=== PATIENT | female | born 1980 | race Two or more races ===

== ENCOUNTER 2016-12-17 22:47 | Emergency (ER) | payer MEDICAID ==
[~2016-12-17] VITALS: Ht 154.9 cm; Wt 54.9 kg
[2016-12-17] MEDS ORDERED: NKM (23:30)
--- NOTE | 2016-12-17 23:33 | Emergency Room Report ---
History of Present Illness General Chief Complaint: Fever Source: Patient Present Illness HPI Is a 36-year-old female with no past medical history. She presents with chief complaint of fever and body pain. Onset today. Also noted a rash on her body. Also lymph node the back of her head. [place] congested. Also with headache. Has not anything for this. No nausea vomiting. No dysuria frequency. Pain is 10 out of 10. Allergies: Coded Allergies: No Known Allergies (Unverified , 12/17/16) Patient History Past Medical History: none, see triage record, old chart reviewed Past Surgical History: none Pertinent Family History: none Last Menstrual Period: Dec Now: No Immunizations: other Reviewed Nursing Documentation: PMH: Agreed, PSxH: Agreed Nursing Documentation-PMH Hx Hypertension: Yes Review of Systems Constitutional: Reports: fever, malaise, weakness Eye: Denies: blurred vision, eye pain ENT: Denies: ear pain, nose congestion, throat swelling Respiratory: Denies: cough, shortness of breath Cardiovascular: Denies: chest pain, palpitations Gastrointestinal: Denies: abdominal pain, diarrhea, nausea, vomiting Musculoskeletal: Denies: back pain, joint pain Skin: Denies: rash Neurological: Denies: headache, numbness Endocrine: Denies: increased thirst, increased urine Hematologic/Lymphatic: Denies: easy bruising All Other Systems: negative except mentioned in HPI Physical Exam Vital Signs Date Time Temp Pulse Resp B/P Pulse Ox O2 Delivery O2 Flow Rate FiO2 12/17/16 23:26 99.3 80 16 157/103 100 Room Air vitals with elevated bp Sp02 EP Interpretation: reviewed, normal General Appearance: well appearing, no apparent distress, alert Head: normocephalic, atraumatic Eyes: bilateral eye EOMI, bilateral eye PERRL ENT: hearing grossly normal, normal pharynx, other - Bilateral TMs with fluid levels. Neck: full range of motion, supple, no meningismus, other - Post auricular lymph nodes. Respiratory: chest non-tender, lungs clear, normal breath sounds Cardiovascular #1: regular rate, rhythm, no murmur Gastrointestinal: normal bowel sounds, non tender, no mass, no organomegaly, no bruit, non-distended Musculoskeletal: back normal, gait/station normal, normal range of motion Psychiatric: mood/affect normal Skin: warm/dry, rash - Scatter viral exanthem Medical Decision Making Diagnostic Impression: Primary Impression: Otitis media of both ears Qualified Codes: H65.03 - Acute serous otitis media, bilateral Additional Impression: Viral illness ER Course Patient with a viral illness complicated by bilateral otitis media. No evidence of meningitis, sepsis, pneumonia, acute abdomen or other serious bacterial infection. She may also have influenza. She looks well otherwise. Last Vital Signs Date Time Temp Pulse Resp B/P Pulse Ox O2 Delivery O2 Flow Rate FiO2 12/17/16 23:26 99.3 80 16 157/103 100 Room Air Status: improved Disposition: HOME, SELF-CARE Condition: Stable Scripts Azithromycin* (ZITHROMAX*) 250 Mg Tablet 250 MG ORAL DAILY, #6 TAB 0 Refills Take two tables once daily for 1 day, then one tablet once daily for 4 days. Prov: ERIKA WEST M.D. 12/17/16 Ibuprofen* (MOTRIN*) 600 Mg Tablet 600 MG ORAL THREE TIMES A DAY, #30 TAB 0 Refills Prov: ERIKA WEST M.D. 12/17/16 Additional Instructions: Followup with your DrToña in 2 to 3 days. Return if symptom worsen. ERIKA WEST M.D. Dec 17, 2016 23:33
[2016-12-17 23:40] VITALS: BP 152/98
[2016-12-17] MEDS ORDERED: IBUPROFEN600 MG ORAL (23:46)
[2016-12-17] MEDS ORDERED: ZITHROMAX250 MG ORAL (23:46)
[2016-12-18 00:04] VITALS: BP 152/98
== END 2016-12-18 00:04 | disposition home or self-care (01) ==
LOC: EMR 23:40
DX: H65.03 Acute serous otitis media, bilateral (principal); B34.9 Viral infection, unspecified; I10 Essential (primary) hypertension
CPT/HCPCS: 99282

== ENCOUNTER 2017-07-06 01:08 | Emergency (ER) | payer MEDICAID ==
[~2017-07-06] VITALS: Ht 165.1 cm; Wt 56.7 kg
[~2017-07-06 01:08] MED LIST: IBUPROFEN600 MG ORAL; NKM; ZITHROMAX250 MG ORAL
[2017-07-06] MEDS ORDERED: LORazepam Inj 2mg/ml 1ml IM ONE (01:45)
[2017-07-06] MEDS ORDERED: ATIVAN0.5 MG ORAL (02:06)
--- NOTE | 2017-07-06 02:06 | Emergency Room Report ---
History of Present Illness General Chief Complaint: Vertigo Source: Patient Present Illness HPI A 36-year-old female presents with dizziness and numbness. She had an argument with her tonight and symptom continue. No fever or chills. No nausea no vomiting. [place] lightheaded pathology a pass out. His been ongoing issue for last 3 months. No suicidal thought homicidal thought. No other complaint. Allergies: Coded Allergies: No Known Allergies (Unverified , 12/17/16) Patient History Past Medical History: see triage record, old chart reviewed Past Surgical History: other Pertinent Family History: none Social History: Denies: smoking Last Menstrual Period: 06/29/17 Now: No Immunizations: other Reviewed Nursing Documentation: PMH: Agreed, PSxH: Agreed Nursing Documentation-PMH Past Medical History: No History, Except For Hx Hypertension: Yes Review of Systems Eye: Denies: blurred vision, eye pain ENT: Denies: ear pain, nose congestion, throat swelling Respiratory: Denies: cough, shortness of breath Cardiovascular: Denies: chest pain, palpitations Gastrointestinal: Denies: abdominal pain, diarrhea, nausea, vomiting Musculoskeletal: Denies: back pain, joint pain Skin: Denies: rash Psychiatric: Reports: emotional problems Neurological: Denies: headache, numbness Endocrine: Denies: increased thirst, increased urine Hematologic/Lymphatic: Denies: easy bruising All Other Systems: negative except mentioned in HPI Physical Exam Vital Signs Date Time Temp Pulse Resp B/P Pulse Ox O2 Delivery O2 Flow Rate FiO2 07/06/17 01:24 98.1 55 16 165/102 98 Room Air vitals with high blood pressure Sp02 EP Interpretation: reviewed, normal General Appearance: well appearing, no apparent distress, alert Head: normocephalic, atraumatic Eyes: bilateral eye EOMI, bilateral eye PERRL ENT: hearing grossly normal, normal pharynx Neck: full range of motion, supple, no meningismus Respiratory: chest non-tender, lungs clear, normal breath sounds Cardiovascular #1: regular rate, rhythm, no murmur Gastrointestinal: normal bowel sounds, non tender, no mass, no organomegaly, no bruit, non-distended Musculoskeletal: back normal, gait/station normal, normal range of motion Psychiatric: anxious - Crying Skin: warm/dry Medical Decision Making Diagnostic Impression: Primary Impression: Panic attack as reaction to stress ER Course Patient presents with panic attack. Better after Ativan. No focal deficit. No evidence of TIA or CVA. We'll discharge home. She's not suicidal or homicidal. No criteria for 5150 Last Vital Signs Date Time Temp Pulse Resp B/P Pulse Ox O2 Delivery O2 Flow Rate FiO2 07/06/17 01:24 98.1 55 16 165/102 98 Room Air Status: improved Disposition: HOME, SELF-CARE Condition: Stable Scripts Lorazepam* (ATIVAN*) 0.5 Mg Tablet 0.5 MG ORAL THREE TIMES A DAY, #15 TAB Prov: ERIKA WEST M.D. 07/06/17 Additional Instructions: followup with your Dr. 7 days. Return if symptom worsen. ERIKA WEST M.D. Jul 06, 2017 02:06
[2017-07-06 02:24] VITALS: BP 167/99
[2017-07-06 02:25] VITALS: BP 165/102
== END 2017-07-06 02:26 | disposition home or self-care (01) ==
LOC: EMR 02:05
DX: F43.0 Acute stress reaction (principal); I10 Essential (primary) hypertension
CPT/HCPCS: 96372; 99283

== ENCOUNTER 2019-08-11 00:02 | Emergency (ER) | payer MEDICAID ==
[~2019-08-11] VITALS: Ht 165.1 cm; Wt 59.0 kg
[~2019-08-11 00:02] MED LIST changes: +ATIVAN0.5 MG ORAL
[2019-08-11 00:06] VITALS: BP 194/97
--- NOTE | 2019-08-11 00:06 | NUR ---
ED Nurse Note: pt ambulated to ed c/o of lower abdominal pain x3 days pt denies n/v/d. iv line established, blood and urine sent to lab
[2019-08-11] MEDS ORDERED: SULFAMETHOXAZO480 ML ORAL (00:11)
[2019-08-11] MEDS ORDERED: cefTRIAXone 1 GM in NS 55 ML IVPB ONE (00:30)
[2019-08-11] MEDS ORDERED: Isovue-300 100ml vial INJ PRN (00:30)
--- NOTE | 2019-08-11 00:30 | Emergency Room Report ---
History of Present Illness General Chief Complaint: Abdominal Pain Source: Patient Present Illness HPI 38-year-old female no past medical history no surgical history presents with dysuria pressure lower abdomen x3 days, patient was given Bactrim yesterday, she still has pressure when she urinates, no aggravating or alleviating factors severity is mild, no fevers no chills, no back pain no nausea vomiting patient presents for evaluation Allergies: Coded Allergies: No Known Allergies (Unverified , 12/17/16) Patient History Past Medical History: see triage record Last Menstrual Period: 07/29/19 Now: No Reviewed Nursing Documentation: PMH: Agreed; PSxH: Agreed Nursing Documentation-PMH Past Medical History: No History, Except For Hx Hypertension: Yes Review of Systems All Other Systems: negative except mentioned in HPI Physical Exam Vital Signs Date Time Temp Pulse Resp B/P (MAP) Pulse Ox O2 Delivery O2 Flow Rate FiO2 08/11/19 00:06 97.9 60 14 194/97 (129) 97 Room Air Sp02 EP Interpretation: reviewed, normal General Appearance: well appearing, no apparent distress, alert Head: normocephalic, atraumatic Eyes: bilateral eye PERRL, bilateral eye EOMI ENT: uvula midline, moist mucus membranes Neck: supple, thyroid normal, supple/symm/no masses Respiratory: lungs clear, no respiratory distress, no retraction, no accessory muscle use Cardiovascular #1: normal peripheral pulses, regular rate, rhythm, no edema, no gallop, no murmur Gastrointestinal: soft, no guarding, no rebound, tenderness - suprapubic tenderness Genitourinary: no CVA tenderness Musculoskeletal: normal inspection Neurologic: alert, oriented x3 Psychiatric: mood/affect normal Skin: no rash, warm/dry Medical Decision Making Diagnostic Impression: Primary Impression: UTI (urinary tract infection) Qualified Codes: N30.00 - Acute cystitis without hematuria ER Course 38-year-old female presents most likely with urinary tract infection Patient currently on Bactrim will provide patient with Rocephin here Patient with no acute abnormalities on labs Last Vital Signs Date Time Temp Pulse Resp B/P (MAP) Pulse Ox O2 Delivery O2 Flow Rate FiO2 08/11/19 00:06 97.9 60 14 194/97 (129) 97 Room Air Disposition: HOME, SELF-CARE Condition: Stable Scripts Phenazopyridine Hcl* (PYRIDIUM*) 100 Mg Tablet 100 MG ORAL THREE TIMES A DAY, #6 TAB Prov: Foreign London MD 08/11/19 Cephalexin* (CEPHALEXIN*) 500 Mg Tablet 500 MG ORAL EVERY 6 HOURS, #20 CAP Prov: Foreign London MD 08/11/19 Referrals: [facility] Patient Instructions: Urinary Tract Infection Additional Instructions: The patient was provided with discharge instructions, notified to follow-up with a primary care doctor and or specialist in the next 24-48 hours, and to return to the ED if they have worsening of their symptoms. Please note that this report is being documented using [employer] technology. This can lead to erroneous entry secondary to incorrect interpretation by the dictating instrument. Foreign London MD Aug 11, 2019 00:30
[2019-08-11 00:36] LABS: APPEARANCE,URINE CLEAR; BASOPHILS % (AUTO) 1.4 % (0.0-2.0); BILIRUBIN, URINE NEGATIVE (NEGATIVE); COLOR,URINE PALE YELLOW; EOSINOPHILS % (AUTO) 2.9 % (0.0-3.0); GLUCOSE, URINE (UA) NEGATIVE (NEGATIVE); HEMATOCRIT 37.9 % (37.0-47.0); HEMOGLOBIN 12.8 G/DL (12.0-16.0); KETONES,URINE NEGATIVE (NEGATIVE); LEUKOCYTE ESTERASE ,URINE NEGATIVE (NEGATIVE); LYMPHOCYTES % (AUTO) 41.2 % (20.0-45.0); MEAN CORPUSCULAR VOLUME 88 FL (80-99); NEUTROPHILS % (AUTO) 46.5 % (45.0-75.0); NITRITE,URINE NEGATIVE (NEGATIVE); PH,URINE 7 (4.5-8.0); PLATELET COUNT 240 K/UL (150-450); PROTEIN,URINE NEGATIVE (NEGATIVE); RED BLOOD COUNT 4.32 M/UL (4.20-5.40); RED CELL DISTRIBUTION WIDTH 11.6 % (11.6-14.8); UROBILINOGEN,URINE NORMAL MG/DL (0.0-1.0); WHITE BLOOD COUNT 7.8 K/UL (4.8-10.8)
[2019-08-11 00:46] LABS: ANION GAP 9 mmol/L (5-15); BLOOD UREA NITROGEN 18 mg/dL (7-18); CALCIUM 9.2 MG/DL (8.5-10.1); CARBON DIOXIDE 25 MMOL/L (21-32); CHLORIDE 106 MMOL/L (98-107); CREATININE 1.1 MG/DL (0.55-1.30); POTASSIUM 3.5 MMOL/L (3.5-5.1); SODIUM 140 MMOL/L (136-145)
[2019-08-11 00:52] LABS: ALANINE AMINOTRANSFERASE 18 U/L (12-78); ALBUMIN 3.8 G/DL (3.4-5.0); ALBUMIN/GLOBULIN RATIO 1.1 (1.0-2.7); ALKALINE PHOSPHATASE 85 U/L (46-116); ASPARTATE AMINO TRANSFERASE 17 U/L (15-37); BILIRUBIN,TOTAL 0.7 MG/DL (0.2-1.0)
[2019-08-11] MEDS ORDERED: CEPHALEXIN500 M1 ORAL (01:08)
[2019-08-11] MEDS ORDERED: PHENAZOPYRIDIN100 MG ORAL (01:09)
[2019-08-11 01:13] VITALS: BP 135/91
--- NOTE | 2019-08-11 01:13 | NUR ---
ER DISCHARGE NOTE: Patient is cleared to be discharged per ERMD, pt is aox4, on room air, with stable vital signs. pt was given dc and prescription instructions, pt was able to verbalize understanding, pt id band and iv site removed without complications. pt is able to ambulate with steady gait. pt took all belongings.
== END 2019-08-11 01:13 | disposition home or self-care (01) ==
LOC: EMR 00:32
DX: N30.00 Acute cystitis without hematuria (principal); I10 Essential (primary) hypertension
CPT/HCPCS: 36415; 80053; 81003; 81025; 83690; 84702; 85025; 96365; 96375; J0696; J2405; Z7502; 99284

== ENCOUNTER 2021-01-02 18:31 | Emergency (ER) | payer MEDICAID ==
[~2021-01-02] VITALS: Ht 162.6 cm; Wt 61.2 kg
[~2021-01-02 18:31] MED LIST changes: +CEPHALEXIN500 M1 ORAL; +PHENAZOPYRIDIN100 MG ORAL; +SULFAMETHOXAZO480 ML ORAL
--- NOTE | 2021-01-02 18:58 | Emergency Room Report ---
History of Present Illness General Chief Complaint: Abdominal Pain Source: Patient Present Illness HPI 40-year-old female history of section presents with vaginal bleeding, lower abdominal pain, crampy in nature, severity is severe, intermittent no fevers no chills no diarrhea no dysuria no flank pain patient presents for evaluation Allergies: Coded Allergies: No Known Allergies (Unverified , 12/17/16) COVID-19 Screening Contact w/high risk pt: No Experienced COVID-19 symptoms?: No COVID-19 Testing performed CARE AIDE: No Patient History Past Medical History: see triage record Now: No Reviewed Nursing Documentation: PMH: Agreed; PSxH: Agreed Nursing Documentation-PMH Hx Hypertension: Yes Review of Systems All Other Systems: negative except mentioned in HPI Physical Exam Vital Signs Date Time Temp Pulse Resp B/P (MAP) Pulse Ox O2 Delivery O2 Flow Rate FiO2 01/02/21 18:38 97.9 76 20 180/93 (122) 98 Room Air Sp02 EP Interpretation: reviewed, normal General Appearance: well appearing, no apparent distress, alert Head: normocephalic, atraumatic Eyes: bilateral eye PERRL, bilateral eye EOMI ENT: uvula midline, moist mucus membranes Neck: supple, thyroid normal, supple/symm/no masses Respiratory: lungs clear, no respiratory distress, no retraction, no accessory muscle use Cardiovascular #1: normal peripheral pulses, regular rate, rhythm, no edema, no gallop, no murmur Gastrointestinal: non tender, soft, no guarding, no rebound Musculoskeletal: normal inspection Neurologic: alert, oriented x3 Psychiatric: mood/affect normal Skin: no rash, warm/dry Medical Decision Making Diagnostic Impression: Primary Impression: UTI (urinary tract infection) Qualified Codes: N30.00 - Acute cystitis without hematuria Additional Impression: Fibroids ER Course 40-year-old female presents with lower abdominal pain differential includes ovarian torsion menstrual pain, urinary tract infection, Patient improved status post Toradol and ministration transvaginal ultrasound shows multiple fibroids Patient also with urinary tract infection patient given ceftriaxone will discharge patient with Keflex and has an outpatient strict return precautions were discussed follow-up with PCP Laboratory Tests Test 01/02/21 18:50 01/02/21 19:04 Urine Color Pale yellow Urine Appearance Slightly cloudy Urine pH 7.0 (4.5-8.0) Urine Specific [place] 1.005 (1.005-1.035) Urine Protein Negative (NEGATIVE) Urine Glucose (UA) Negative (NEGATIVE) Urine Ketones Negative (NEGATIVE) Urine Blood 5+ (NEGATIVE) H Urine Nitrite Positive (NEGATIVE) H Urine Bilirubin Negative (NEGATIVE) Urine Urobilinogen Normal MG/DL (0.0-1.0) Urine Leukocyte Esterase 1+ (NEGATIVE) H Urine RBC Tntc /HPF (0 - 2) H Urine WBC 5-10 /HPF (0 - 2) H Urine Squamous Epithelial Cells Moderate /LPF (NONE/OCC) H Urine Bacteria Moderate /HPF (NONE) H Urine HCG, Qualitative Negative (NEGATIVE) White Blood Count 10.6 K/UL (4.8-10.8) Red Blood Count 4.58 M/UL (4.20-5.40) Hemoglobin 13.0 G/DL (12.0-16.0) Hematocrit 41.2 % (37.0-47.0) Mean Corpuscular Volume 90 FL (80-99) Mean Corpuscular Hemoglobin 28.4 PG (27.0-31.0) Mean Corpuscular Hemoglobin Concent 31.6 G/DL (32.0-36.0) L Red Cell Distribution Width 12.5 % (11.6-14.8) Platelet Count 277 K/UL (150-450) Mean Platelet Volume 6.8 FL (6.5-10.1) Neutrophils (%) (Auto) 76.3 % (45.0-75.0) H Lymphocytes (%) (Auto) 16.3 % (20.0-45.0) L Monocytes (%) (Auto) 5.2 % (1.0-10.0) Eosinophils (%) (Auto) 1.4 % (0.0-3.0) Basophils (%) (Auto) 0.9 % (0.0-2.0) Sodium Level 141 MMOL/L (136-145) Potassium Level 3.4 MMOL/L (3.5-5.1) L Chloride Level 104 MMOL/L (98-107) Carbon Dioxide Level 27 MMOL/L (21-32) Anion Gap 10 mmol/L (5-15) Blood Urea Nitrogen 16 mg/dL (7-18) Creatinine 0.9 MG/DL (0.55-1.30) Estimated Glomerular Filtration Rate > 60 mL/min (>60) Glucose Level 120 MG/DL (74-106) H Calcium Level 8.6 MG/DL (8.5-10.1) Total Bilirubin 0.4 MG/DL (0.2-1.0) Aspartate Amino Transferase (AST) 21 U/L (15-37) Alanine Aminotransferase (ALT) 19 U/L (12-78) Alkaline Phosphatase 77 U/L (46-116) Total Protein 7.7 G/DL (6.4-8.2) Albumin 3.8 G/DL (3.4-5.0) Globulin 3.9 g/dL Albumin/Globulin Ratio 1.0 (1.0-2.7) Lipase 136 U/L (73-393) CT/MRI/US Diagnostic Results CT/MRI/US Diagnostic Results : Impression Final Report EXAM: US Pelvis Transabdominal, Complete CLINICAL HISTORY: ABD PAIN TECHNIQUE: Real-time complete transabdominal pelvic ultrasound with image documentation. COMPARISON: None. FINDINGS: Uterus/cervix: The uterus measures 9.4 x 3.0 x 5.2 cm. The endometrium measures 6.1 mm. The uterus is heterogeneous with multiple hypoechoic structures which may indicate small uterine fibroids, largest seen within the posterior aspect of the uterine body junction with lower uterine segment and measuring 1.3 x 1.4 cm. Remainder of the hypoechoic structure is presumed fibroids within the uterus are ill defined and therefore difficult to measure. There are several small nabothian cysts. Right ovary: The right ovary measures 2.4 bowel 0.4 x 2.5 cm. Small cystic structures most compatible with follicular cysts. Normal blood flow. Left ovary: The left ovary measures 3.2 x 1.8 x 2.4 cm. Small cystic structures compatible with follicular cyst. Normal blood flow. Free fluid: Trace free fluid in the anterior cul-de-sac. Bladder: Unremarkable as visualized. Wall is normal thickness for degree of distention. IMPRESSION: Likely multiple small uterine fibroids as described. Otherwise uterus and bilateral ovaries unremarkable. Radiologist: Jennifer Cantor MD Electronically Signed: 01/02/21 20:36 Study ready at 20:33 and initial results transmitted at 20:36 Last Vital Signs Date Time Temp Pulse Resp B/P (MAP) Pulse Ox O2 Delivery O2 Flow Rate FiO2 01/02/21 18:38 97.9 76 20 180/93 (122) 98 Room Air Disposition: HOME, SELF-CARE Condition: Stable Scripts Cephalexin* (KEFLEX*) 500 Mg Capsule 500 MG ORAL EVERY 6 HOURS, #28 CAP Prov: Foreign London MD 01/02/21 Ibuprofen* (MOTRIN*) 600 Mg Tablet 600 MG ORAL Q8H PRN for FOR PAIN, #30 TAB 0 Refills Prov: Foreign London MD 01/02/21 Referrals: [facility] Nico Richardson [facility] Patient Instructions: Abdominal Pain, Adult, Urinary Tract Infection, [id number], Uterine Fibroids, [id number] Additional Instructions: The patient was provided with discharge instructions, notified to follow-up with a primary care doctor and or specialist in the next 24-48 hours, and to return to the ED if they have worsening of their symptoms. Please note that this report is being documented using [employer] technology. This can lead to erroneous entry secondary to incorrect interpretation by the dictating instrument. Foreign London MD Jan 02, 2021 18:58
[2021-01-02] MEDS ORDERED: Ketorolac 30mg Inj IV ONE (19:00)
[2021-01-02] MEDS ORDERED: Hydromorphone 0.5mg/0.5ml inj IVP ONE (19:00)
[2021-01-02 19:05] LABS: APPEARANCE,URINE SLIGHTLY CLOUDY; COLOR,URINE PALE YELLOW; PROTEIN,URINE NEGATIVE (NEGATIVE)
--- NOTE | 2021-01-02 19:05 | NUR ---
ED Nurse Note:Recieved pt with complaints of lower abdominal pain 10/10, nausea and vomiting for 10 days. patient denies possibility of being , denies any vag discharge, no blood in the urine.
[2021-01-02 19:06] LABS: BILIRUBIN, URINE NEGATIVE (NEGATIVE); GLUCOSE, URINE (UA) NEGATIVE (NEGATIVE); KETONES,URINE NEGATIVE (NEGATIVE); LEUKOCYTE ESTERASE ,URINE 1+ (NEGATIVE); NITRITE,URINE POSITIVE (NEGATIVE); UROBILINOGEN,URINE NORMAL MG/DL (0.0-1.0)
[2021-01-02 19:17] LABS: BASOPHILS % (AUTO) 0.9 % (0.0-2.0); EOSINOPHILS % (AUTO) 1.4 % (0.0-3.0); HEMATOCRIT 41.2 % (37.0-47.0); LYMPHOCYTES % (AUTO) 16.3 % (20.0-45.0); MEAN CORPUSCULAR VOLUME 90 FL (80-99); MONOCYTES % (AUTO) 5.2 % (1.0-10.0); NEUTROPHILS % (AUTO) 76.3 % (45.0-75.0); PLATELET COUNT 277 K/UL (150-450); RED BLOOD COUNT 4.58 M/UL (4.20-5.40); RED CELL DISTRIBUTION WIDTH 12.5 % (11.6-14.8); WHITE BLOOD COUNT 10.6 K/UL (4.8-10.8)
[2021-01-02 19:43] LABS: ANION GAP 10 mmol/L (5-15); BLOOD UREA NITROGEN 16 mg/dL (7-18); CALCIUM 8.6 MG/DL (8.5-10.1); CARBON DIOXIDE 27 MMOL/L (21-32); CHLORIDE 104 MMOL/L (98-107); CREATININE 0.9 MG/DL (0.55-1.30); POTASSIUM 3.4 MMOL/L (3.5-5.1); SODIUM 141 MMOL/L (136-145)
--- NOTE | 2021-01-02 19:45 | NUR ---
ED Nurse Note: Patient is complaining of pain lower abdomen 10/10. medication Dilaudid, Zofran and Ketorolac administered as ordered. Scanner for medication not functionning. Meds verified with NATHALIA Dozier. Well tolerated.
[2021-01-02 19:47] LABS: ALANINE AMINOTRANSFERASE 19 U/L (12-78); ALBUMIN 3.8 G/DL (3.4-5.0); ALKALINE PHOSPHATASE 77 U/L (46-116); ASPARTATE AMINO TRANSFERASE 21 U/L (15-37); BILIRUBIN,TOTAL 0.4 MG/DL (0.2-1.0)
[2021-01-02 19:51] VITALS: BP 180/93
[2021-01-02] MEDS ORDERED: cefTRIAXone 1 GM in NS 55 ML IVPB ONE (20:00)
--- NOTE | 2021-01-02 20:37 | Diagnostic Imaging Report ---
EXAM: US Pelvis Transabdominal, Complete CLINICAL HISTORY: ABD PAIN TECHNIQUE: Real-time complete transabdominal pelvic ultrasound with image documentation. COMPARISON: None. FINDINGS: Uterus/cervix: The uterus measures 9.4 x 3.0 x 5.2 cm. The endometrium measures 6.1 mm. The uterus is heterogeneous with multiple hypoechoic structures which may indicate small uterine fibroids, largest seen within the posterior aspect of the uterine body junction with lower uterine segment and measuring 1.3 x 1.4 cm. Remainder of the hypoechoic structure is presumed fibroids within the uterus are ill defined and therefore difficult to measure. There are several small nabothian cysts. Right ovary: The right ovary measures 2.4 bowel 0.4 x 2.5 cm. Small cystic structures most compatible with follicular cysts. Normal blood flow. Left ovary: The left ovary measures 3.2 x 1.8 x 2.4 cm. Small cystic structures compatible with follicular cyst. Normal blood flow. Free fluid: Trace free fluid in the anterior cul-de-sac. Bladder: Unremarkable as visualized. Wall is normal thickness for degree of distention. IMPRESSION: Likely multiple small uterine fibroids as described. Otherwise uterus and bilateral ovaries unremarkable.
[2021-01-02] MEDS ORDERED: IBUPROFEN600 M1 ORAL (20:40)
[2021-01-02] MEDS ORDERED: CEPHALEXIN500 MG ORAL (20:40)
== END 2021-01-02 21:00 | disposition home or self-care (01) ==
LOC: EMR 19:00
DX: N30.00 Acute cystitis without hematuria (principal); D25.9 Leiomyoma of uterus, unspecified; I10 Essential (primary) hypertension; Z98.890 Other specified postprocedural states
CPT/HCPCS: 36415; 76830; 76856; 80053; 81003; 81025; 83690; 85025; 87086; 96361; 96365; 96375; J0696; J1170; J1885; J2405; J7030; Z7502; 99284